=== PATIENT | male | born 1960 | race Caucasian/White ===

== ENCOUNTER 2025-05-26 06:30 | Outpatient (REF) | payer BC, SELFPAY ==
--- OUTSIDE RECORDS SUMMARY | 2025-05-26 06:34 | XMS_ITS | Encounter Summary ---
Author Organization [facility] Address [address] [facility] [facility] [address] [place] [phone] Phone Care Team Providers Care Hot Room Attendant Name Role Phone Unknown, Unknown MD Primary Care Provider Alexander collado Unknown, Unknown MD Primary Care Provider Alexander collado Unknown, Unknown MD Unavailable Unavailable Encounter Details Date Type Department Care Team (Late st Contact Info) Description 01/12/2018 Ancillary Orders [facility] External Provider Virtual Department [address] [place] [address] Lesley Mann, PIPED BUTTONHOLE MACHINE OPERATOR [address] [place] [address] Irritable bowel syndrome, unspecified type; Left upper quadrant pain Social History Tobacco Use Types Packs/Day Years Used Date Smoking Tobacco: Never Assessed Sex and Gender Information Value Date Recorded Sex Assigned at Not on file Legal Sex Male 10:31 AM EST Gender Identity Not on file Sexual Orientation Not on file documented as of this encounter Plan of Treatment Not on file documented as of this encounter Results * US Abdomen Complete (01/29/2018 8:08 AM EDT) Anatomical Region Laterality Modality Abdomen Ultrasound 01/29/2018 8:34 AM EDT Impressions 01/29/2018 8:35 AM EDT No significant abnormality of the visualized upper abdominal visceral structures. POS - [id number] Narrative 01/29/2018 8:35 AM EDT FINDINGS: The gallbladder is within normal limits in appearance without evidence of cholelithiasis or focal wall thickening. The intrahepatic bile ducts are nondilated and the common duct is within normal limits at 0.4 cm in diameter. The liver and spleen are within normal limits in size and display homogeneous parenchymal echotexture. The pancreatic head and body are within normal limits in appearance with the tail obscured by overlying bowel gas. The kidneys are within normal limits in size and sonographic appearance, as are the visualized portions of the proximal abdominal aorta and IVC. Procedure Note Zhanna Vicente MD - 01/29/2018 FINDINGS: The gallbladder is within normal limits in appearance without evidence ofcholelithiasis or focal wall thickening. The intrahepatic bile ducts arenondilated and the common duct is within normal limits at 0.4 cm indiameter. The liver and spleen are within normal limits in size anddisplay homogeneous parenchymal echotexture. The pancreatic head and bodyare within normal limits in appearance with the tail obscured by overlyingbowel gas. The kidneys are within normal limits in size and sonographicappearance, as are the visualized portions of the proximal abdominal aortaand IVC. IMPRESSION: No significant abnormality of the visualized upper abdominal visceralstructures. POS - [id number] us Lesley Mann PIPED BUTTONHOLE MACHINE OPERATOR IMG US ABDOMEN Final Resul t documented in this encounter Visit Diagnoses Diagnosis Irritable bowel syndrome, unspecified type Left upper quadrant pain Abdominal pain, left upper quadrant Irritable bowel syndrome, unspecified type Left upper quadrant pain Abdominal pain, left upper quadrant documented in this encounter Care Teams Hot Room Attendant Relationship Specialty Start Date End Date Unknown, Unknown, PCP - General 01/12/18 11/29/21 Unknown, Unknown, PCP - General 11/30/21 Unknown, Unknown, 11/30/21 documented as of this encounter Additional Source Comments The information contained in this document represents components of the legal health record. It is not the complete legal health record.[facility]
--- OUTSIDE RECORDS SUMMARY | 2025-05-26 06:34 | XMS_ITS ---
Author Organization Unknown ENCOUNTERS Encounter Performer Location Date Diagnosis Diagnosis Status Outpatient [facility] [address] [place] [id number] [facility] [address] [address] [id number] A[facility] Outpatient [facility] - ED [address] [place] [address] [id number] A[facility] Lab [facility] - ED [address] [place] [address] [id number] AHR Outpatient LITA CANCINO [facility] - ED [address] [place] [address] [id number] AHR Outpatient HEIDY TALLEY [facility] - ED [address] [place] [address] [id number] A[facility] Outpatient [facility] - ED [address] [place] [address] [id number] Emergency KRISTAL CLAY [facility] - ED [address] [place] [address] [id number] AHR Emergency [facility] - ED [address] [place] [address] [id number] AHR Outpatient AZUL GOLDSTEIN MD [facility] - ED [address] [place] [address] [id number] Outpatient MARISOL GOLDBERG [facility] - ED [address] [place] [address] [id number] A[facility] Outpatient [facility] - ED [address] [place] [address] [id number] Outpatient JEAN DELANEY [facility] - ED [address] [place] [address] [id number] AHR Outpatient LUCIE VUONG [facility] - ED [address] [place] [address] [id number] Outpatient Elías Garcia [facility] - ED [address] [place] [address] [id number] Outpatient LUCIE VUONG [facility] - ED [address] [place] [address] [id number] *Note: Encounters from your own facility or health system may be excluded. Allergies, Adverse Reactions, Alerts Allergen Type Severity Identification Date Medications Name Date Quantity Days Supplied [facility] Number
--- OUTSIDE RECORDS SUMMARY | 2025-05-26 06:34 | XMS_ITS | Continuity of Care Document ---
Author Organization [facility] Address [address] [facility] [address] [place], [place] Phone [phone] Care Team Providers Care Rug Washer Name Role Phone Sesar Hernandez Care Team Information Lemon Picker U navailable Social History Type Date Description Comments Sex Male Sex Unknown
--- OUTSIDE RECORDS SUMMARY | 2025-05-26 06:34 | XMS_ITS | Clinical Summary ---
Author Organization [facility] Address [address] [employer] [address] [address] Phone Care Team Providers Care Coat Maker Name Role Phone Unknown, Unknown Primary Care Provider Alexander collado Unknown, Unknown MD Unavailable Unavailable Allergies No known active allergies Medications No known medications Active Problems No known active problems Social History Tobacco Use Types Packs/Day Years Used Date Smoking Tobacco: Never Assessed Education Answer Date Recorded Are you interested in more education? Not on delmy e 01/25/2023 Are you concerned about learning? Not on file 01/25/2023 No 01/25/2023 No 01/25/2023 Digital Access Answer Date Recorded No 02/23/2023 No 02/23/2023 Reliable internet access at home? Not on file 02/23/2023 Device with a working camera? Not on file Sex and Gender Information Value Date Recorded Sex Assigned at Not on file Legal Sex Male 10:31 AM EST Gender Identity Not on file Sexual Orientation Not on file Last Filed Vital Signs Vital Sign Reading Time Taken Comments Blood Pressure 142/70 12/02/2023 9:37 AM EST Pulse 67 12/02/2023 9:37 AM EST Temperature - - Respiratory Rate 16 12/02/2023 9:37 AM EST Oxygen Saturation 99% 12/02/2023 9:37 AM EST Inhaled Oxygen Concentration - - Weight 97.5 kg (215 lb) 12/02/2023 9:37 AM EST Height 188 cm (6' 2 ) 12/02/2023 9:37 AM EST Body Mass Index 27.6 12/02/2023 9:37 AM EST Plan of Treatment Health Maintenance Due Date Last Done Comments Adult Td,Tdap Booster 1962 LIPID PANEL 1962 DEPRESSION SCREENING 1974 SMOKING Hx and SMOKELESS TOB ACCO SCREENING 1975 HEPATITIS C SCREENING 1980 HIV ONE-TIME SCREENING (18-6 5 YEARS) 1980 SCREENING FOR DIABETES 1997 COLOGUARD 2007 COLONOSCOPY 2007 COLORECTAL CANCER SCREENING 2007 FIT TEST 2007 FOBT 2007 SIGMOIDOSCOPY 2007 VIRTUAL COLONOSCOPY 2007 PNEUMOCOCCAL VACCINES (50+ y ears) (1 of 1 - PCV) 2012 ZOSTER VACCINES (1 of 2) 2012 COVID-19 VACCINE (2 - 2023-2 5 season) 2024 01/01/2021 RSV VACCINE (1 - 1-dose 75+ series) 2037 HEPATITIS A VACCINES Aged Out No long er eligible based on patient's age to complete this topic HIB VACCINES Aged Out No longer eligi ble based on patient's age to complete this topic MENINGOCOCCAL VACCINES (ACWY) Aged Out No longer eligible based on patient's age to complete this topic MENINGOCOCCAL VACCINES (B) Aged Out N o longer eligible based on patient's age to complete this topic Medical Devices Not on file Insurance EPO [facility] [place] E[place] P[place] E[place] PPO EPO [facility] PPO EPO PPO EPO PPO EPO [facility] PPO EPO PPO EPO PPO EPO PPO EPO PPO EPO PPO EPO PPO EPO PPO EPO Care Teams Coat Maker Relationship Specialty Start Date End Date Unknown, Unknown, PCP - General 11/30/21 Unknown, Unknown, 11/30/21 Additional Source Comments The information contained in this document represents components of the legal health record. It is not the complete legal health record.[facility]
[2025-05-26 06:44] LABS: MANUAL DIFF FLAG NO
[2025-05-26 07:01] LABS: Hemoglobin A1C 144.4445 umol/L; Total Hemoglobin (HGBA1C) 3462.5609 umol/L
[2025-05-26 07:05] LABS: Hematocrit 39.5 % (42.0-52.0); Hemoglobin 13.3 g/dl (14.0-18.0); Imm Gran Abs Auto 0.05 X10*3/uL (0.00-0.03); Imm Gran Pct Auto 0.6 % (0.0-0.4); Lymphocytes Absolute Auto 1.4 X10*3/uL (1.2-4.9); Mean Corpuscular HGB Conc 33.7 g/dl (31.0-36.0); Mean Corpuscular Hemoglobin 29.4 pg (27.0-33.0); Mean Corpuscular Volume 87.4 fL (80.0-98.0); NRBC Abs Auto 0.000 X10*3/uL (0.0-0.012); NRBC Pct Auto 0.0 /100WBC (0.0-0.2); Platelet Count 205 X10*3/uL (160-400); Red Blood Count 4.52 X10*6/uL (4.60-5.80); White Blood Count 7.8 X10*3/uL (4.8-10.8)
[2025-05-26 07:09] LABS: Alanine Aminotransferase 10 U/L (0-40); Albumin Level 3.4 g/dL (3.5-5.0); Alkaline Phosphatase 64 U/L (39-117); Anion Gap 12 (12-20); Aspartate Amino Transferase 22 U/L (5-37); Blood Urea Nitrogen 30 mg/dL (9-16); Calcium 8.9 mg/dL (8.4-10.2); Carbon Dioxide 25 mmol/L (22-29); Chloride 105 mmol/L (96-108); Estimated Glomerular Filt Rate > 60; Potassium 3.9 mmol/L (3.3-5.1); Sodium 138 mmol/L (135-145); Total Protein 5.8 g/dL (6.5-8.0)
== END 2025-05-26 06:31 | disposition home or self-care (01) ==
LOC: HO.MMNH1L 06:30
PROVIDERS: Visit Provider Physician Assistant Medical
DX: I10 Essential (primary) hypertension (principal); N39.0 Urinary tract infection, site not specified; E78.5 Hyperlipidemia, unspecified; Z13.1 Encounter for screening for diabetes mellitus
CPT/HCPCS: 36415; 80053; 83036; 85025